=== PATIENT | male | born 1965 | race African-American/Black ===

== ENCOUNTER 2018-02-27 15:23 | Emergency (ER) | payer OTHER ==
[~2018-02-27] VITALS: Ht 190.5 cm; Wt 86.2 kg
[~2018-02-27 15:23] MED LIST: AMOXICILLIN875 MG PO; CIPROFLOXACIN500 M1 PO; DOXYCYCLINE 10100 MG PO; GLIPIZIDE 10 MG10 MG PO; GLUCOPHAGE1000 MG PO; HYDROCHLOROTH12.5 MG PO; JANUMET 50-1,01 EACH PO; LANTUS100 UNIT/M SUBQ; LISINOPRIL5 MG PO; METFORMIN HCL500 MG PO; NORCO 5-325 TA1 EACH PO; NOVOLOG100 UNIT/1 SUBQ; ZOCOR
[2018-02-27] MEDS ORDERED: CYCLOBENZAPRINE5 MG PO (16:46)
[2018-02-27] MEDS ORDERED: NORCO 10-325 T1 EACH PO (16:46)
[2018-02-27 17:08] VITALS: BP 178/88
== END 2018-02-27 17:29 | disposition home or self-care (01) ==
LOC: ER 15:23
DX: S16.1XXA Strain of muscle, fascia and tendon at neck level, initial encounter (principal); S39.012A Strain of muscle, fascia and tendon of lower back, initial encounter; I10 Essential (primary) hypertension; E11.9 Type 2 diabetes mellitus without complications; V89.0XXA Person injured in unspecified motor-vehicle accident, nontraffic, initial encounter; Y93.89 Activity, other specified; Y92.89 Other specified places as the place of occurrence of the external cause; Y99.8 Other external cause status